=== PATIENT | male | born 1985 | race Caucasian/White ===

== ENCOUNTER 2019-02-20 09:09 | Emergency (ER) | payer MEDICAID, OTHER ==
[~2019-02-20] VITALS: Ht 190.5 cm; Wt 79.5 kg
[~2019-02-20 09:09] MED LIST: DIAZ10TA PO
[2019-02-20 09:19] VITALS: BP 130/87
[2019-02-20] MEDS ORDERED: ibuprofen 200mg tablet PO ONE (10:05)
== END 2019-02-20 11:05 | disposition home or self-care (01) ==
LOC: ER 09:09
DX: S70.11XA Contusion of right thigh, initial encounter (principal); S80.211A Abrasion, right knee, initial encounter; M79.672 Pain in left foot; F12.90 Cannabis use, unspecified, uncomplicated; F15.90 Other stimulant use, unspecified, uncomplicated; F14.90 Cocaine use, unspecified, uncomplicated; F17.200 Nicotine dependence, unspecified, uncomplicated; Z90.49 Acquired absence of other specified parts of digestive tract; V49.9XXA Car occupant (driver) (passenger) injured in unspecified traffic accident, initial encounter; W22.19XA Striking against or struck by other automobile airbag, initial encounter; Y93.89 Activity, other specified; Y92.488 Other paved roadways as the place of occurrence of the external cause; Y99.8 Other external cause status
CPT/HCPCS: 73630; 99283

== ENCOUNTER 2021-10-29 23:40 | Emergency (ER) | payer MEDICAID ==
[~2021-10-29] VITALS: Ht 190.5 cm; Wt 74.4 kg
== END 2021-10-30 05:02 | disposition left against medical advice (07) ==
LOC: ER 23:40
DX: K08.89 Other specified disorders of teeth and supporting structures (principal); Z53.21 Procedure and treatment not carried out due to patient leaving prior to being seen by health care provider

== ENCOUNTER 2023-06-15 23:57 | Emergency (ER) | payer MEDICAID ==
[~2023-06-15] VITALS: Ht 190.5 cm; Wt 82.0 kg
[~2023-06-15 23:57] MED LIST changes: +DIAZ-546 PO; -DIAZ10TA PO
[2023-06-16 00:03] VITALS: TEMP 97.8
[2023-06-16] MEDS ORDERED: ketorolac trometh. 30mg/ml inj. IV ONE (00:55)
[2023-06-16] MEDS ORDERED: proCHLORperazine 10 MG/2 ml inj IV ONE (00:55)
[2023-06-16] MEDS ORDERED: normal saline 1000ml 1,000 ML IV ONE (00:55)
[2023-06-16] MEDS ORDERED: acetaminophen 325mg tablet PO ONE (00:55)
[2023-06-16] MEDS ORDERED: ondansetron/PF 4mg/2ml inj IV ONE (00:55)
[2023-06-16 01:10] VITALS: BP 121/87; PULSE 75; RESP 18; O2SAT 97
== END 2023-06-16 01:41 | disposition home or self-care (01) ==
LOC: ER 23:57
DX: G43.909 Migraine, unspecified, not intractable, without status migrainosus (principal); R11.10 Vomiting, unspecified; F15.90 Other stimulant use, unspecified, uncomplicated; F12.90 Cannabis use, unspecified, uncomplicated; F14.90 Cocaine use, unspecified, uncomplicated; Z91.030 Bee allergy status; Z98.890 Other specified postprocedural states
CPT/HCPCS: 96361; 96374; 96375; 99284; J0780; J1885; J2405; J7030

== ENCOUNTER 2023-08-21 04:35 | Emergency (ER) | payer MEDICAID ==
[~2023-08-21] VITALS: Ht 190.5 cm; Wt 112.0 kg
[2023-08-21] MEDS ORDERED: normal saline 1000ML IV soln IVB ONE (04:40)
[2023-08-21] MEDS ORDERED: ondansetron/PF 4mg/2ml inj IV ONE (04:40)
[2023-08-21 04:45] VITALS: TEMP 98.8
[2023-08-21 05:37] LABS: HEMOGLOBIN 14.5 g/dl (14.0-17.9); MEAN PLATELET VOLUME 7.5 FL (7.4-10.4); WHITE BLOOD COUNT 8.5 X10'3 (4.5-11.0)
[2023-08-21 05:38] LABS: BASOPHILS # (AUTO) 0.1 X10'3 (0-0.2); BASOPHILS % (AUTO) 0.8 % (0-1); EOSINOPHILS # (AUTO) 0.3 X10'3 (0-0.9); EOSINOPHILS % (AUTO) 3.1 % (0-6); HEMATOCRIT 42.9 % (42.0-52.0); LYMPHOCYTES # (AUTO) 2.2 X10'3 (1.1-4.8); LYMPHOCYTES % (AUTO) 25.6 % (21-51); MEAN CORPUSCULAR HEMOGLOBIN 29.1 PG (27.0-31.0); MEAN CORPUSCULAR HGB CONC 33.8 g/dL (33.0-36.5); MEAN CORPUSCULAR VOLUME 86.2 FL (78-98); MONOCYTES % (AUTO) 11.2 % (2-12); NEUTROPHILS % (AUTO) 59.3 % (42-75); PLATELET COUNT 299 X10'3 (140-440); RED BLOOD COUNT 4.97 X10'6 (4.70-6.10); RED CELL DISTRIBUTION WIDTH 14.2 % (11.5-14.5)
[2023-08-21 05:55] LABS: URINE AMPHETAMINE SCREEN POSITIVE (Neg); URINE BARBITUATE SCREEN NEGATIVE (Neg); URINE BENZODIAZEPINES SCREEN NEGATIVE (Neg); URINE CANNABINOID SCREEN NEGATIVE (Neg); URINE COCAINE SCREEN NEGATIVE (Neg); URINE METHADONE SCREEN POSITIVE (Neg); URINE OPIATE SCREEN NEGATIVE (Neg); URINE PHENCYCLIDINE SCREEN NEGATIVE (Neg)
[2023-08-21 05:59] LABS: ALANINE AMINOTRANSFERASE 37 U/L (12-78); ALBUMIN 4.2 G/DL (3.4-5.0); ALBUMIN/GLOBULIN RATIO 1.2 (1.1-1.5); ALKALINE PHOSPHATASE 84 IU/L (46-116); ANION GAP 7 (8-16); ASPARTATE AMINO TRANSFERASE 26 U/L (10-37); BILIRUBIN,TOTAL 0.5 MG/DL (0.1-1.0); BLOOD UREA NITROGEN 18 MG/DL (7-18); BUN/CREATININE RATIO 18.8 (10.0-20.0); CHLORIDE 103 MMOL/L (99-107); CREATININE 0.96 MG/DL (0.60-1.10); GLUCOSE 94 MG/DL (70-104); LIPASE 26 U/L (16-77); POTASSIUM 4.1 MMOL/L (3.5-5.1); SODIUM 137 MMOL/L (135-145); TOTAL CARBON DIOXIDE 26.9 MMOL/L (24-32); TOTAL PROTEIN 7.8 G/DL (6.4-8.2); eCRCL 127 ML/MIN; eGFR 89 ML/MIN
[2023-08-21] MEDS ORDERED: acetaminophen 325mg tablet PO ONE (06:05)
[2023-08-21] MEDS ORDERED: ONDA4TAB12 PO (06:19)
[2023-08-21 07:23] VITALS: BP 133/95; PULSE 88; RESP 16; O2SAT 98
== END 2023-08-21 07:20 | disposition home or self-care (01) ==
LOC: ER 04:36
DX: R11.10 Vomiting, unspecified (principal); Z79.899 Other long term (current) drug therapy
CPT/HCPCS: 36415; 80053; 80305; 83690; 85025; 96361; 96374; 99283; J2405; J7030

== ENCOUNTER 2023-09-26 22:42 | Emergency (ER) | payer MEDICAID ==
[~2023-09-26] VITALS: Ht 190.5 cm; Wt 93.6 kg
[~2023-09-26 22:42] MED LIST changes: +ONDA4TAB12 PO
[2023-09-27] MEDS ORDERED: acetaminophen 325mg tablet PO ONE (02:20)
[2023-09-27] MEDS ORDERED: normal saline 1000ml 1,000 ML IV ONE (02:20)
[2023-09-27] MEDS ORDERED: ketorolac trometh. 30mg/ml inj. IV ONE (02:20)
[2023-09-27] MEDS ORDERED: proCHLORperazine 10 MG/2 ml inj IV ONE (02:20)
[2023-09-27 02:52] VITALS: BP 131/82; PULSE 94; RESP 20; TEMP 98; O2SAT 100
== END 2023-09-27 02:55 | disposition home or self-care (01) ==
LOC: ER 22:42
DX: G43.909 Migraine, unspecified, not intractable, without status migrainosus (principal); R11.2 Nausea with vomiting, unspecified; F31.9 Bipolar disorder, unspecified; F12.10 Cannabis abuse, uncomplicated; F15.10 Other stimulant abuse, uncomplicated; Z91.030 Bee allergy status; Z79.899 Other long term (current) drug therapy
CPT/HCPCS: 96374; 96375; 99284; J0780; J1885; J7030

== ENCOUNTER 2024-02-14 19:39 | Emergency (ER) | payer MEDICAID ==
[~2024-02-14] VITALS: Ht 190.5 cm; Wt 93.5 kg
[2024-02-14 19:40] VITALS: TEMP 97.9
[2024-02-14] MEDS ORDERED: ketorolac trometh. 30mg/ml inj. IM ONE (19:45)
[2024-02-14] MEDS ORDERED: ketorolac trometh. 30mg/ml inj. IV ONE ×2 (20:15→20:25)
[2024-02-14] MEDS: ketorolac tromethamine 15mg/ml inj. IM ONE (20:17)
[2024-02-14] MEDS: metoclopramide 5 mg/ml inj IM ONE (20:17)
[2024-02-14] MEDS: diphenhydrAMINE 50 mg/ml inj IM ONE (20:17)
[2024-02-14] MEDS: ketorolac tromethamine 15mg/ml inj. IV ONE (20:25)
[2024-02-14] MEDS: metoclopramide 5 mg/ml inj IV ONE (20:27)
[2024-02-14] MEDS: diphenhydrAMINE 50 mg/ml inj IV ONE (20:28)
[2024-02-14] MEDS: normal saline 1000ml 1,000 ML IV ONE (20:28)
[2024-02-14 21:41] VITALS: BP 132/94; PULSE 92; RESP 16; O2SAT 99
== END 2024-02-14 21:43 | disposition home or self-care (01) ==
LOC: ER 19:39
DX: G43.909 Migraine, unspecified, not intractable, without status migrainosus (principal); F17.210 Nicotine dependence, cigarettes, uncomplicated; F12.90 Cannabis use, unspecified, uncomplicated; F15.90 Other stimulant use, unspecified, uncomplicated; F14.90 Cocaine use, unspecified, uncomplicated; Z91.030 Bee allergy status; Z79.899 Other long term (current) drug therapy; Z98.890 Other specified postprocedural states
CPT/HCPCS: 70450; 96361; 96374; 96375; 99285; J1200; J1885; J2765; J7030